=== PATIENT | female | born 1990 | race Caucasian/White ===

== ENCOUNTER 2016-04-25 08:23 | Emergency (ER) | payer BC ==
[~2016-04-25] VITALS: Ht 160 cm; Wt 62.5 kg
[2016-04-25 08:25] VITALS: BP 144/78
[2016-04-25] MEDS ORDERED: HYDROCODONE/ACETAMINOPHEN 5-325 MG TABLET PO ONE (10:30)
[2016-04-25] MEDS ORDERED: LIDOCAINE HCL BUFFERED 1% 20 ML VIAL INJ ONE (10:30)
[2016-04-25] MEDS ORDERED: POVIDONE-IODINE 10% 15 ML SOLUTION UD TP ONE (11:15)
== END 2016-04-25 12:39 | disposition home or self-care (01) ==
LOC: EMS 08:26
DX: L02.214 Cutaneous abscess of groin (principal); I10 Essential (primary) hypertension
CPT/HCPCS: 10060; 84703; 99283; J3490

== ENCOUNTER 2016-04-27 08:05 | Emergency (ER) | payer BC ==
[~2016-04-27] VITALS: Ht 160 cm; Wt 65.0 kg
[2016-04-27] MEDS ORDERED: BACTDSB PO (08:25)
[2016-04-27] MEDS ORDERED: IBUP-1547 PO (08:25)
[2016-04-27] MEDS ORDERED: CEPH500 PO (08:25)
[2016-04-27] MEDS ORDERED: OxyCODONE HCL/ACETAMINOPHEN 5-325 MG TABLET PO ONE (10:15)
[2016-04-27 11:15] VITALS: BP 118/81
== END 2016-04-27 11:31 | disposition home or self-care (01) ==
LOC: EMS 08:05
DX: Z48.00 Encounter for change or removal of nonsurgical wound dressing (principal)
CPT/HCPCS: 99282